=== PATIENT | female | born 1965 | race Caucasian/White ===

== ENCOUNTER 2025-03-14 17:09 | Emergency (ER) | payer OTHER ==
[2025-03-14] MEDS ORDERED: Ibuprofen 200 MG TAB ONE (18:33)
[2025-03-14] MEDS ORDERED: predniSONE 20 MG TAB ONE (18:33)
== END 2025-03-14 18:35 | disposition home or self-care (01) ==
LOC: BURERS 17:09
DX: S46.912A Strain of unspecified muscle, fascia and tendon at shoulder and upper arm level, left arm, initial encounter (principal); M54.2 Cervicalgia; V89.2XXA Person injured in unspecified motor-vehicle accident, traffic, initial encounter
CPT/HCPCS: 99284; J7512